=== PATIENT | male | born 1965 | race Caucasian/White ===

== ENCOUNTER 2016-04-24 19:54 | Emergency (ER) | payer BC ==
[2016-04-24 20:01] VITALS: TEMP 98.2
[2016-04-24] MEDS ORDERED: SODIUM CHLORIDE 0.9% 1,000 ML IV STA (20:48)
--- NOTE | 2016-04-24 20:51 | ED ---
Neuro HPI - General Chief Complaint: Neuro Symptoms/Deficit Stated Complaint: Face numbness/heavy palpatations Time Seen by Provider: 04/24/16 20:25 Source: patient, RN notes reviewed Mode of arrival: ambulatory Limitations: no limitations - History of Present Illness Is the patient presenting with stroke symptoms?: No Initial Comments: This is a 51-year-old male with a benign past medical history states he started on driving back from [place] where he was visiting family when on the way back he started developing an episode of squeezing sharp midsternal chest pain that lasted about 10 minutes and resolve this was in [place] he continued to drive home he also states for the past 3-4 weeks she's had intermittent numbness the right side of his face and right flank area. He thinks he is very anxious he also had sharp shooting headaches also for the past several weeks she's had episodes of flashes of light through his eyes. Currently he is asymptomatic however he does appear very anxious he denies any fevers chills nausea vomiting sweats cough or phlegm production he quit smoking in [address] or alcohol. He states he also feels a little bit off with his mentation at this time. - Related Data Home Medications: Home Medications Medication Instructions Recorded Confirmed Multivitamins, Thera [Multivitamin] 1 tab PO DAILY 04/24/16 04/24/16 Previous Rx's Medication Instructions Recorded ALPRAZolam [Xanax] 0.25 mg PO BID PRN #14 tab 04/24/16 Amoxicillin/Potassium Clav 1 tab PO Q12HR #20 tab 04/24/16 [Augmentin 875-125 Tablet] guaiFENesin [Mucinex] 600 mg PO Q12HR #20 tablet.er 04/24/16 Allergies/Adverse Reactions: Allergies Allergy/AdvReac Type Severity Reaction Status Date / Time No Known Allergies Allergy Verified 04/24/16 20:10 Review of Systems ROS Statement: Those systems with pertinent positive or pertinent negative responses have been documented in the HPI. ROS Other: All systems not noted in ROS Statement are negative. General Exam - General Exam Comments Initial Comments: This a well-developed well-nourished awake alert oriented times x3male Limitations: no limitations General appearance: alert, anxious Head exam: Present: atraumatic, normocephalic, normal inspection Eye exam: Present: normal appearance, PERRL, EOMI. Absent: scleral icterus, conjunctival injection, periorbital swelling ENT exam: Present: normal exam, mucous membranes moist Neck exam: Present: normal inspection. Absent: tenderness, meningismus, lymphadenopathy Respiratory exam: Present: normal lung sounds bilaterally, other (He does appear to be hyperventilating somewhat). Absent: respiratory distress, wheezes , rales, rhonchi, stridor Cardiovascular Exam: Present: regular rate, normal rhythm, normal heart sounds. Absent: systolic murmur, diastolic murmur, rubs, gallop, clicks GI/Abdominal exam: Present: soft, normal bowel sounds. Absent: distended, tenderness, guarding, rebound, rigid Extremities exam: Present: normal inspection, full ROM, normal capillary refill. Absent: tenderness, pedal edema, joint swelling, calf tenderness Back exam: Present: normal inspection Neurological exam: Present: alert, oriented X3, CN II-XII intact Psychiatric exam: Present: normal affect, normal mood Skin exam: Present: warm, dry, intact, normal color. Absent: rash Stroke MDM - Lab Data Result diagrams: 04/24/16 21:10 04/24/16 21:10 Lab Results 04/24/16 04/24/16 04/24/16 Range/Units 21:10 21:10 21:10 WBC 6.3 (3.8-10.6) k/uL RBC 4.75 (4.30-5.90) m/uL Hgb 14.9 (13.0-17.5) gm/dL Hct 45.5 (39.0-53.0) % MCV 95.8 (80.0-100.0) fL MCH 31.3 (25.0-35.0) pg MCHC 32.7 (31.0-37.0) g/dL RDW 12.3 (11.5-15.5) % Plt Count 149 L (150-450) k/uL Neutrophils % 63 % Lymphocytes % 26 % Monocytes % 7 % Eosinophils % 2 % Basophils % 0 % Neutrophils # 4.0 (1.3-7.7) k/uL Lymphocytes # 1.6 (1.0-4.8) k/uL Monocytes # 0.4 (0-1.0) k/uL Eosinophils # 0.1 (0-0.7) k/uL Basophils # 0.0 (0-0.2) k/uL PT (9.0-12.0) sec INR (<1.1) APTT (22.0-30.0) sec D-Dimer (<0.60) mg/L FEU Sodium 143 (137-145) mmol/L Potassium 3.9 (3.5-5.1) mmol/L Chloride 104 (98-107) mmol/L Carbon Dioxide 26 (22-30) mmol/L Anion Gap 13 mmol/L BUN 13 (9-20) mg/dL Creatinine 0.84 (0.66-1.25) mg/dL Est GFR (MDRD) Af Amer >60 (>60 ml/min/1.73 sqM) Est GFR (MDRD) Non-Af >60 (>60 ml/min/1.73 sqM) Glucose 97 (74-99) mg/dL Calcium 9.6 (8.4-10.2) mg/dL Magnesium 2.2 (1.6-2.3) mg/dL Total Bilirubin 0.8 (0.2-1.3) mg/dL AST 26 (17-59) U/L ALT 35 (21-72) U/L Alkaline Phosphatase 70 (38-126) U/L Total Creatine Kinase 84 (55-170) U/L CK-MB (CK-2) 1.7 (0.0-2.4) ng/mL CK-MB (CK-2) Rel Index 2.0 Troponin I <0.012 (0.000-0.034) ng/mL Total Protein 7.8 (6.3-8.2) g/dL Albumin 4.5 (3.5-5.0) g/dL TSH 1.530 (0.465-4.680) mIU/L Urine Color Urine Appearance (Clear) Urine pH (5.0-8.0) Ur Specific [place] (1.001-1.035) Urine Protein (Negative) Urine Glucose (UA) (Negative) Urine Ketones (Negative) Urine Blood (Negative) Urine Nitrate (Negative) Urine Bilirubin (Negative) Urine Urobilinogen (<2.0) mg/dL Ur Leukocyte Esterase (Negative) Urine RBC (0-5) /hpf Urine WBC (0-5) /hpf Calcium Oxalate Crystal (None) /hpf Urine Mucus (None) /hpf 04/24/16 04/24/16 Range/Units 21:10 22:00 WBC (3.8-10.6) k/uL RBC (4.30-5.90) m/uL Hgb (13.0-17.5) gm/dL Hct (39.0-53.0) % MCV (80.0-100.0) fL MCH (25.0-35.0) pg MCHC (31.0-37.0) g/dL RDW (11.5-15.5) % Plt Count (150-450) k/uL Neutrophils % % Lymphocytes % % Monocytes % % Eosinophils % % Basophils % % Neutrophils # (1.3-7.7) k/uL Lymphocytes # (1.0-4.8) k/uL Monocytes # (0-1.0) k/uL Eosinophils # (0-0.7) k/uL Basophils # (0-0.2) k/uL PT 11.6 (9.0-12.0) sec INR 1.2 (<1.1) APTT 23.4 (22.0-30.0) sec D-Dimer 0.20 (<0.60) mg/L FEU Sodium (137-145) mmol/L Potassium (3.5-5.1) mmol/L Chloride (98-107) mmol/L Carbon Dioxide (22-30) mmol/L Anion Gap mmol/L BUN (9-20) mg/dL Creatinine (0.66-1.25) mg/dL Est GFR (MDRD) Af Amer (>60 ml/min/1.73 sqM) Est GFR (MDRD) Non-Af (>60 ml/min/1.73 sqM) Glucose (74-99) mg/dL Calcium (8.4-10.2) mg/dL Magnesium (1.6-2.3) mg/dL Total Bilirubin (0.2-1.3) mg/dL AST (17-59) U/L ALT (21-72) U/L Alkaline Phosphatase (38-126) U/L Total Creatine Kinase (55-170) U/L CK-MB (CK-2) (0.0-2.4) ng/mL CK-MB (CK-2) Rel Index Troponin I (0.000-0.034) ng/mL Total Protein (6.3-8.2) g/dL Albumin (3.5-5.0) g/dL TSH (0.465-4.680) mIU/L Urine Color Dark Yellow Urine Appearance Cloudy (Clear) Urine pH 6.0 (5.0-8.0) Ur Specific [place] 1.024 (1.001-1.035) Urine Protein 1+ H (Negative) Urine Glucose (UA) Negative (Negative) Urine Ketones 1+ H (Negative) Urine Blood Negative (Negative) Urine Nitrate Negative (Negative) Urine Bilirubin 1+ H (Negative) Urine Urobilinogen 6.0 (<2.0) mg/dL Ur Leukocyte Esterase Negative (Negative) Urine RBC 1 (0-5) /hpf Urine WBC 3 (0-5) /hpf Calcium Oxalate Crystal Few H (None) /hpf Urine Mucus Many H (None) /hpf - NIH Stroke Scale 1a. Level of Consciousness: (0) alert 1b. LOC Questions: (0) answers correctly 1c. LOC Commands: (0) performs tasks correctly 2. Best Gaze: (0) normal 3. Visual: (0) no visual loss 4. Facial Palsy: (0) normal symmetrical movement 5a. Motor Arm Left: (0) no drift 5b. Motor Arm Right: (0) no drift 6a. Motor Leg Left: (0) no drift 6b. Motor Leg Right: (0) no drift 7. Limb Ataxia: (0) absent 8. Sensory: (0) normal 9. Best Language: (0) no aphasia 10. Dysarthria: (0) normal 11. Extinction/Inattention: (0) no abnormality - Medical Decision Making The patient workup is negative for any acute findings other than the right maxillary sinusitis. Imaging and lab work is otherwise within normal limits. Patient does have also anxiety. He will be discharged on appropriate medication. - EKG Data -: EKG Interpreted by Me EKG shows normal: sinus rhythm, axis, intervals, QRS complexes, ST-T waves ( Sinus rhythm rate is 76. A 140 QRS duration 106 QT/QTC of 384/432 this is a normal-appearing EKG.) Past Medical History Past Medical History: No Reported History History of Any Multi-Drug Resistant Organisms: None Reported Past Surgical History: No Surgical Hx Reported Past Psychological History: Schizophrenia Smoking Status: Never smoker Past Alcohol Use History: None Reported Past Drug Use History: None Reported Course Vital Signs 04/24/16 04/24/16 04/24/16 19:57 21:17 21:45 Temperature 98.2 F Pulse Rate 102 H 69 68 Respiratory 18 18 14 Rate Blood Pressure 143/61 130/88 137/80 O2 Sat by Pulse 99 100 100 Oximetry Disposition Clinical Impression: Maxillary sinusitis, acute, Anxiety Disposition: HOME SELF-CARE Condition: Good Instructions: Sinusitis (ED), Anxiety (ED) Prescriptions: ALPRAZolam [Xanax] 0.25 mg PO BID PRN #14 tab PRN Reason: Anxiety Amoxicillin/Potassium Clav [Augmentin 875-125 Tablet] 1 tab PO Q12HR #20 tab guaiFENesin [Mucinex] 600 mg PO Q12HR #20 tablet.er Referrals: None,Stated [Primary Care Provider] - 1-2 days
[2016-04-24 21:35] LABS: Basophils % (A) 0 %; CH 31.5; Eosinophils # (A) 0.1 k/uL (0-0.7); Eosinophils % (A) 2 %; HCT 45.5 % (39.0-53.0); HDW 2.19; HGB 14.9 gm/dL (13.0-17.5); Luc # (Auto) 0.13; Luc % (Auto) 2; Lymphocytes # (A) 1.6 k/uL (1.0-4.8); Lymphocytes % (A) 26 %; MCH 31.3 pg (25.0-35.0); MCHC 32.7 g/dL (31.0-37.0); MCV 95.8 fL (80.0-100.0); Mean Platelet Volume 7.6; Monocytes # (A) 0.4 k/uL (0-1.0); Monocytes % (A) 7 %; Neutrophils % (A) 63 %; RBC 4.75 m/uL (4.30-5.90); RDW 12.3 % (11.5-15.5); WBC 6.3 k/uL (3.8-10.6); WBC (Perox) 6.23
--- NOTE | 2016-04-24 21:35 | XR ---
EXAMINATION TYPE: XR chest 2V DATE OF EXAM: 04/24/2016 9:29 PM COMPARISON: NONE HISTORY: Facial numbness TECHNIQUE: Frontal and lateral views of the chest are obtained. FINDINGS: Heart and mediastinum are normal. Lungs are clear. Costophrenic angles are clear. There is a mild thoracic kyphotic curvature. There are no hilar masses. There are chest leads. IMPRESSION: No active cardiopulmonary disease. Normal heart.
[2016-04-24 21:37] LABS: ALT 35 U/L (21-72); AST 26 U/L (17-59); Alkaline Phosphatase 70 U/L (38-126); Anion Gap 13 mmol/L; Blood Urea Nitrogen 13 mg/dL (9-20); Calcium 9.6 mg/dL (8.4-10.2); Carbon Dioxide 26 mmol/L (22-30); Chloride 104 mmol/L (98-107); Glucose 97 mg/dL (74-99); Magnesium 2.2 mg/dL (1.6-2.3); Non-African American GFR(MDRD) >60 (>60 ml/min/1.73 sqM); Potassium 3.9 mmol/L (3.5-5.1); Sodium 143 mmol/L (137-145); Total Bilirubin 0.8 mg/dL (0.2-1.3); Total Protein 7.8 g/dL (6.3-8.2)
[2016-04-24 21:44] LABS: Creatine Kinase 84 U/L (55-170)
[2016-04-24 21:49] LABS: INR 1.2 (<1.1); Partial Thromboplastin Time 23.4 sec (22.0-30.0); Prothrombin Time 11.6 sec (9.0-12.0)
[2016-04-24 21:57] LABS: Creatine Kinase MB 1.7 ng/mL (0.0-2.4); Troponin I <0.012 ng/mL (0.000-0.034)
--- NOTE | 2016-04-24 22:12 | CT ---
EXAMINATION TYPE: CT brain wo con DATE OF EXAM: 04/24/2016 9:42 PM COMPARISON: NONE HISTORY: Pt states of right side facial numbness and confusion CT DLP: 1251 mGycm Automated exposure control for dose reduction was used. FINDINGS: There is no acute intracranial hemorrhage, mass effect, or midline shift identified. The ventricles and sulci are within normal limits in size. The globes are intact . Air-fluid levels are noted in the right maxillary sinus with acute sinusitis changes. Mucosal thicken ing is noted in the left maxillary sinus and ethmoid sinuses and also in frontal and the sphenoid sin uses with chronic sinusitis changes. IMPRESSION: No acute intracranial hemorrhage, mass effect, or midline shift is seen. If clinical symptoms persist a follow-up in 24 to 48 hours would be helpful. Sinusitis changes.
[2016-04-24 22:18] LABS: Appearance,Urine Cloudy (Clear); Bilirubin,Urine 1+ (Negative); Calcium Oxalate Crystals,Urine Few /hpf; Glucose,Urine (UA) Negative (Negative); Ketones,Urine 1+ (Negative); Leukocyte Esterase,Urine Negative (Negative); Mucus,Urine Many /hpf; Nitrite,Urine Negative (Negative); Particle Count 19594; Protein,Urine 1+ (Negative); RBC,Urine 1 /hpf (0-5); Specific Gravity,Urine 1.024 (1.001-1.035); UA Billing (MACRO vs. MICRO) MICRO; WBC,Urine 3 /hpf (0-5)
[2016-04-24 23:50] VITALS: BP 127/63; PULSE 72; RESP 16
== END 2016-04-24 23:48 | disposition home or self-care (01) ==
LOC: EC 19:54
DX: J01.00 Acute maxillary sinusitis, unspecified (principal); F41.9 Anxiety disorder, unspecified; Z86.59 Personal history of other mental and behavioral disorders
CPT/HCPCS: 36415; 70450; 71020; 80053; 81001; 82550; 82553; 83735; 84443; 84484; 85025; 85379; 85610; 85730; 93005; 96360; 96361; 99284

== ENCOUNTER → 2017-06-01 | Outpatient (CLI) | payer SELFPAY ==
[2017-06-01 11:25] LABS: Basophils % (A) 0 %; Eosinophils # (A) 0.1 k/uL (0-0.7); Eosinophils % (A) 3 %; HCT 45.2 % (39.0-53.0); Lymphocytes # (A) 1.3 k/uL (1.0-4.8); Lymphocytes % (A) 29 %; MCH 31.7 pg (25.0-35.0); MCHC 33.1 g/dL (31.0-37.0); MCV 95.5 fL (80.0-100.0); Mean Platelet Volume 7.6; Monocytes # (A) 0.4 k/uL (0-1.0); Monocytes % (A) 8 %; Neutrophils # (A) 2.7 k/uL (1.3-7.7); Neutrophils % (A) 58 %; Platelet Count 129 k/uL (150-450); RBC 4.73 m/uL (4.30-5.90); RDW 12.3 % (11.5-15.5); WBC 4.6 k/uL (3.8-10.6)
[2017-06-01 11:46] LABS: ALT 33 U/L (21-72); AST 26 U/L (17-59); Albumin 4.6 g/dL (3.5-5.0); Alkaline Phosphatase 62 U/L (38-126); Anion Gap 8 mmol/L; Blood Urea Nitrogen 12 mg/dL (9-20); C Reactive Protein <5.0 mg/L (<10.0); Calcium 9.7 mg/dL (8.4-10.2); Carbon Dioxide 31 mmol/L (22-30); Chloride 100 mmol/L (98-107); Cholesterol 204 mg/dL (<200); Glucose 96 mg/dL (74-99); HDL Cholesterol 78 mg/dL (40-60); LDL Cholesterol,Calculated 114 mg/dL (0-99); Potassium 4.4 mmol/L (3.5-5.1); Sodium 139 mmol/L (137-145); Total Bilirubin 0.7 mg/dL (0.2-1.3); Total Protein 7.5 g/dL (6.3-8.2); Triglycerides 62 mg/dL (<150)
[2017-06-01 12:12] LABS: Prostate Specific Antigen 0.69 ng/mL (0.00-4.00)
[2017-06-01 12:44] LABS: Erythrocyte Sedimentation Rate 7 mm/hr (0-15)
[2017-06-01 17:07] LABS: Anti-DNA, DS unit <1.0 IU/mL; DNA Double-Stranded NEGATIVE (NEGATIVE)
[2017-06-02 12:43] LABS: HLA B27 NEGATIVE
== END | disposition home or self-care (01) ==
LOC: LABWHC1 10:57
PROVIDERS: ATTEND Family Medicine
DX: Z00.00 Encounter for general adult medical examination without abnormal findings (principal); M25.50 Pain in unspecified joint
CPT/HCPCS: 36415; 80053; 80061; 84153; 85025; 85652; 86038; 86140; 86225; 86812

== ENCOUNTER → 2017-06-29 | Outpatient (CLI) | payer OTHER ==
--- NOTE | 2017-06-29 14:59 | XR ---
Lumbosacral spine HISTORY: Low back pain 5 views of the lumbar spine correlated prior exam 06/15/2010 Bone mineralization is similar, there is no evident spondylolysis or spondylolisthesis. There is mild spondylosis present. Disc heights are remarkable for some mild loss of disc height L5-S1. Sclerosis present in the posterior elements of the lower lumbar spine. IMPRESSION: Mild degenerative disc disease, facet arthropathy. MRI may be of benefit.
--- NOTE | 2017-06-29 15:01 | XR ---
Bilateral hip HISTORY: Osteoarthritis, bilateral hip pain 2 views of each hip are submitted on a total of 4 images, no comparisons There is mild prominence along the femoral neck, left greater than right. Mild marginal spurring susp ected. Alignment and joint spaces, bone mineralization maintained. IMPRESSION: Possible mild osteoarthritis, correlate for femoral acetabular impingement.
== END ==
LOC: RADXRMAIN 11:49
PROVIDERS: ATTEND Family Medicine
DX: M51.37 Other intervertebral disc degeneration, lumbosacral region (principal); M46.87 Other specified inflammatory spondylopathies, lumbosacral region; M16.0 Bilateral primary osteoarthritis of hip
CPT/HCPCS: 72110; 73521

== ENCOUNTER → 2017-07-08 | Outpatient (CLI) | payer OTHER ==
--- NOTE | 2017-07-08 21:03 | CT ---
EXAMINATION TYPE: CT cervical spine wo con DATE OF EXAM: 07/08/2017 COMPARISON: NONE HISTORY: Cervical disc disorder, Thoracic pain, pt feels a lump by his xiphoid process. Neck pain CT DLP: 740.60 mGycm Automated exposure control for dose reduction was used. TECHNIQUE: CT scan of the cervical spine is obtained without contrast, axial images are obtained, sa gittal and coronal reformatted images are also reviewed. FINDINGS: There is extensive mucosal thickening in the maxillary and ethmoid sinuses. Cervical vertebra have normal alignment. Disc spaces are fairly normal. There is minor spurring anter iorly at C5-6 C6-7. Facet joints are intact. There is no evidence of a fracture. Skull base is intact . Prevertebral soft tissues are not enlarged. Epiglottis is normal. IMPRESSION: Sinusitis. Mild spurring in the lower cervical spine. No fracture. There is noted some calcification in the oral pharynx bilaterally. This could relate to parotid duct calcification.
--- NOTE | 2017-07-10 00:09 | CT ---
EXAMINATION TYPE: CT chest wo con DATE OF EXAM: 07/08/2017 COMPARISON: NONE HISTORY: Cervical disc disorder, Thoracic pain, pt feels a lump by his xiphoid process CT DLP: 581.90 mGycm. Automated Exposure Control for Dose Reduction was Utilized. TECHNIQUE: CT scan of the thorax is performed without IV contrast. FINDINGS: LUNGS: A few scattered micronodules are present, for reference there is 3 to 4 mm nodule right mid garcia ng axial image 38. There is no suspicious greater than 5 mm parenchymal nodule or mass. There is rig ht basilar anterior linear scarring. No suspicious consolidation or groundglass opacity is seen. Ther e is no pleural effusion or pneumothorax seen bilaterally. The tracheobronchial tree is patent. MEDIASTINUM: Lack of IV contrast is noted to limit evaluation for mediastinal and especially hilar ad enopathy. There are no definitive greater than 1 cm hilar or mediastinal lymph nodes. No cardiomega ly or pericardial effusion is seen. OTHER: Bilateral gynecomastia is noted. Exaggerated thoracic kyphosis is seen. Underlying scoliosis i s noted on coronal images. There is moderate multilevel spurring in the mid to lower thoracic spine. Visualized spleen is felt enlarged. Inferior aspect of scaphoid at level of xiphoid process shows abn ormal anterior bowing without suspicious solid or cystic mass or fluid collection likely accounting f or patient's symptoms. IMPRESSION: Anterior bowing of xiphoid process without suspicious mass.
--- NOTE | 2017-07-10 00:11 | CT ---
EXAMINATION TYPE: CT thoracic spine wo con DATE OF EXAM: 07/08/2017 COMPARISON: NONE HISTORY: Cervical disc disorder, Thoracic pain, pt feels a lump by his xiphoid process. CT DLP: 581.90 mGycm Automated exposure control for dose reduction was used. FINDINGS: There is exaggerated thoracic kyphosis. There is moderate multilevel anterior and lateral spurring in the mid to lower thoracic spine. There is levoconvex scoliosis centered in the upper thoracic spine. No acute fracture or dislocation is seen. Spinal canal is grossly preserved without significant disc herniation on sagittal or axial images. Please refer to same day CT chest report for complete details on findings outside the thoracic spine. IMPRESSION: ABOVE
== END ==
LOC: RADCTMAIN 18:32
PROVIDERS: ATTEND Family Medicine
DX: M40.204 Unspecified kyphosis, thoracic region (principal); M41.9 Scoliosis, unspecified; M46.02 Spinal enthesopathy, cervical region; J32.9 Chronic sinusitis, unspecified; J39.2 Other diseases of pharynx; M89.8X8 Other specified disorders of bone, other site
CPT/HCPCS: 71250; 72125; 72128

== ENCOUNTER → 2017-11-15 | Outpatient (CLI) | payer OTHER ==
--- NOTE | 2017-11-15 21:50 | CONS ---
CONSULTATION Consultation for sleep apnea. A 52-year-old male patient was referred to me by Dr. Murphy Segal, his primary care physician. The patient woke up twice in the middle of the night with palpitation and heart fluttering and he was quite anxious and sweaty. This lasted for around 2 minutes and he was able to go back to sleep. He had another episode the day following and since then, he has been symptom-free for the past 4-5 months. He discussed this with his primary care physician and he was asked to come in for a sleep apnea evaluation. He denies history of snoring. No history of any witnessed apneas. In fact, the patient lives alone. He is not sure if he had any snoring or apneas. However, he denies having any waking up gasping for air other than the 2 episodes that were mentioned earlier. No sleepwalking. No anxiety or panic attack. No nighttime heartburn. No sleep talking. The patient has no history of coronary artery disease. No history of atrial fibrillation. No history of any cardiac arrhythmias. He has history of scoliosis and kyphosis of the chest along with degenerative disc disease. No hypersomnia or sleepiness during the day. His [place] score is 0. PAST MEDICAL HISTORY: 1. Scoliosis. 2. Kyphosis. 3. Degenerative arthritis. 4. Degenerative disc disease. 5. 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 6. History of pulmonary nodules, benign. 7. Obesity with history of weight loss and the patient has lost more than 100 pounds in terms of his weight. He used to weigh more than 350 and currently he is down to 216. PAST SURGICAL HISTORY: Includes none. DRUG ALLERGIES: None. OUTPATIENT MEDICATION: Includes: 1. Flonase. 2. Singulair. 3. Ibuprofen. 4. Fish oil and. 5. Aspirin. SOCIAL HISTORY: Nonsmoker. No history of alcoholism. No history of IV drugs. FAMILY HISTORY: Negative for sleep apnea. REVIEW OF SYSTEMS: A 12-point review of systems was done. He has chronic sinus disease; plugging, congestion and episodic infections. He goes to bed around 11:00 p.m., wakes up 7:00 a.m. in the morning. It takes him a few minutes to fall asleep. No sleep paralysis. No hallucinations. No cataplexy. Occasional dreams. No restlessness of lower extremities. BP is 118/60, pulse 79, respirations 16, temperature 98.4, saturation 99%. Weight is 216. Height is 5 feet 11 inches and [place] Score is at 0, BMI 29.7, neck size 15-1/2 inches. GENERAL APPEARANCE: Calm, comfortable. Head is atraumatic, normocephalic. Neck is supple. No JVD. No goiter or neck mass. LUNGS: Clear to auscultation. HEART: Sounds regular rhythm. Normal S1, S2. No S3, S4. No murmurs. ABDOMEN: Soft, nontender. No organomegaly. EXTREMITIES: No edema. No cyanosis or clubbing. IMPRESSION: 1. Question of obstructive sleep apnea. Overall suspicion is low. The patient's description is more consistent with panic attacks rather than true cardiac arrhythmias or any nocturnal episodes of apnea. 2. Obesity with interval 100 pounds weight loss. Current weight is down to 216 am with a BMI of 29.7. 3. Chronic pain. 4. Scoliosis. 5. Kyphosis. 6. Chronic sinus disease. 7. Pulmonary nodules. 8. Degenerative arthritis. 9. Osteoarthritis. PLAN: 1. Proceed with a home sleep study to evaluate for any sleep breathing disorder. 2. Overall suspicion for sleep apnea is low. 3. May need a baseline echocardiogram to assess for any valvular heart disease or any other systolic dysfunction. 4. Will continue to follow. ROSA / CHARLES: [id number] /
== END | disposition home or self-care (01) ==
LOC: SLEEP 14:38
PROVIDERS: ATTEND Internal Medicine Critical Care Medicine
DX: I49.8 Other specified cardiac arrhythmias (principal); R00.2 Palpitations; E66.9 Obesity, unspecified; G89.29 Other chronic pain; M41.9 Scoliosis, unspecified; J32.9 Chronic sinusitis, unspecified; R91.8 Other nonspecific abnormal finding of lung field; M19.90 Unspecified osteoarthritis, unspecified site; Z79.1 Long term (current) use of non-steroidal anti-inflammatories (NSAID); Z79.82 Long term (current) use of aspirin; Z68.29 Body mass index [BMI] 29.0-29.9, adult; Z79.51 Long term (current) use of inhaled steroids
CPT/HCPCS: 99211

== ENCOUNTER → 2017-12-06 | Outpatient (CLI) | payer OTHER ==
--- NOTE | 2017-12-06 16:25 | PN ---
PROGRESS NOTE This is a 52-year-old male patient who was initially referred to me for 2 episodes of heart palpitations/fluttering that occurred at night and woke him up from sleep and made him very anxious. There was suspicion for obstructive sleep apnea and based on that, the patient was referred to me for further evaluation. As part of further investigation, I performed a home sleep testing on this patient. My overall suspicion for sleep apnea was low; however, based on the above mentioned symptoms I proceeded with a home sleep testing. HST was done and the patient was found to have a total of 104 obstructive apneas, 9 mixed apneas, and 61 hypopneas and the resulting apnea- hypopnea index was 20 and disease was worse while the patient was supine. There was no significant oxygen desaturation. On today's evaluation I had a lengthy discussion with the patient regarding results of study. His [place] score remains at 3; however, he seems to be interested in CPAP therapy taking into account the severity of obstructive sleep apnea. Note that the patient did not have any further episodes of heart fluttering since the earlier episodes. He has multiple other comorbidities including kyphosis and scoliosis and degenerative disc disease. He is not obese. PHYSICAL EXAMINATION: BP is 116/71, pulse is 74, respirations 16, saturation 99% on room air. BMI 29.7. GENERAL APPEARANCE: Calm, comfortable. HEAD: Atraumatic, normocephalic. NECK: Supple. No JVD. No goiter or neck masses. LUNGS: Clear to auscultation. HEART: Sounds are regular rate and rhythm. Normal S1, S2. No S3. No murmurs. ABDOMEN: Soft, nontender. No organomegaly. EXTREMITIES: No edema. No cyanosis or clubbing. NEUROLOGIC: The patient is alert and oriented x3. No focal neurological deficits. PSYCHIATRIC: Negative for anxiety or depression. IMPRESSION: 1. Symptomatic obstructive sleep apnea, AHI of 20. 2. Episodes of nocturnal palpitations/fluttering of the heart, could be related to obstructive sleep apnea. PLAN: 1. We will offer this patient CPAP titration and following that the patient will be proceeding with CPAP therapy. 2. Would recommend a cardiac evaluation also and a Holter monitor may be needed in regards to his reported palpitation and fluttering. 3. The patient will see me back in the office following titration in 30 to 90 days to assess clinical response and compliance. MMODL / IJN: [id number] /
== END | disposition home or self-care (01) ==
LOC: SLEEP 15:12
PROVIDERS: ATTEND Internal Medicine Critical Care Medicine
DX: Z53.9 Procedure and treatment not carried out, unspecified reason (principal)

== ENCOUNTER → 2018-02-28 | Outpatient (CLI) | payer OTHER ==
--- NOTE | 2018-02-28 13:07 | PN ---
PROGRESS NOTE This patient is coming in for a compliancy check. The patient was diagnosed having obstructive sleep apnea. Moderate severity AHI of 20, worse in the supine body position. He was given an APAP unit. Note that he had a CPAP titration; however, during the titration, the patient demonstrated a very poor sleep efficiency of 35%. Based on that, I was able to give him an APAP the unit. The machine currently is set at a minimum pressure of 5, maximum pressure of 12. He is utilizing an Air Fit P10, large-sized nose pillows. He is benefiting from the treatment. His sleep quality is improved. He is using his APAP every night. His APAP use for more than 4 hours, , averaging around 7.4 hours of CPAP use per night. AHI while on treatment is down to 1.6. Leak factor is 19 L/minute. Average APAP pressure is 7.4. He has no other complaints otherwise for now. He is currently living with his daughter. His daughter used to live in [place] and she moved with her kids in town. His sleep quality is good. He is waking up alert and refreshed during the day. He does not take have to take any naps or any other complaints. REVIEW OF SYSTEMS: A 12-point review of system was done. No headaches, no altered mentation. No hypersomnia, no nasal congestion. No dry mouth or dry nose. No sinus attacks or infections, no heartburn, no chest pain. Shortness of breath. No restlessness or lower extremities. Review of system was done. A 12 point and most of the positive findings were listed in the history of present illness. PHYSICAL EXAMINATION: BP is 120/64, pulse 72, respirations 16, weight is 216, temperature 98.3, [place] score is 4, saturation 98% on room air. GENERAL APPEARANCE: Calm, comfortable. HEENT: Atraumatic, normocephalic. Neck is short, supple, crowding of posterior pharynx. There is no goiter or neck masses. LUNGS: Diminished, otherwise clear. HEART: Sounds regular rate and rhythm. Normal S1, S2. No S3, S4. No murmurs. ABDOMEN: Soft, nontender. No organomegaly. EXTREMITIES: No edema. No cyanosis or clubbing. NEUROLOGIC: Alert and oriented x3. No focal neurological deficits. PSYCHIATRIC: Negative for anxiety or depression. IMPRESSION: 1. Symptomatic obstructive sleep apnea with an apnea-hypopnea index of 20.5, worse in the supine body position, underwent a successful CPAP therapy, currently on APAP, minimum of 5, maximum of 12. 2. Obesity, weight is 216. 3. Chronic body aches and pain. 4. Scoliosis. 5. Kyphosis. 6. Degenerative arthritis. 7. Nocturnal palpitations. PLAN: 1. Continue APAP therapy at same level of pressure, minimum of 5, maximum of 12. 2. Keep the Air Fit P10 nose pillows. 3. The patient is in compliance. 4. The patient is benefitting from the treatment. 5. Continue treatment, see me back in a year's time in followup. MMODL / IJN: [id number] /
== END ==
LOC: SLEEP 10:05
PROVIDERS: ATTEND Internal Medicine Critical Care Medicine
DX: G47.33 Obstructive sleep apnea (adult) (pediatric) (principal); E66.9 Obesity, unspecified; M41.9 Scoliosis, unspecified; M40.209 Unspecified kyphosis, site unspecified; M19.90 Unspecified osteoarthritis, unspecified site; R00.2 Palpitations; G89.29 Other chronic pain; M79.10 Myalgia, unspecified site; Z99.89 Dependence on other enabling machines and devices